=== PATIENT | female | born 1965 | race Caucasian/White ===

== ENCOUNTER → 2016-06-27 | Outpatient (CLI) | payer BC ==
[2014-12-19 09:31] VITALS: BP 105/53
[~2016-06-27] MED LIST: HORMONE CREAM; HYDR-2666 PO; HYDR50TA6 PO; MULT1TAB52 PO; NAPR550T3 PO; PHEN37.53 PO; SERT50TA PO; TRAZ50TA15 PO
--- NOTE | 2016-06-28 09:09 | KCIC ---
PROCEDURE MR of the right shoulder HISTORY Right shoulder pain for 2 months. No known injury. TECHNIQUE Standard noncontrast images are obtained. COMPARISON None FINDINGS The acromioclavicular joint is mildly degenerative with mild undersurface hypertrophy. There is diffuse thickening with some increased signal identified at the supraspinatus and infra spinatus tendon compatible with tendinosis. No measurable defect or rupture. Subscapularis tendon intact. Trace subdeltoid bursal fluid. No advanced muscle atrophy. No significant glenohumeral joint fluid. Tiny defect of the superior labrum at 12 o'clock, possibly a tiny tear, with degeneration. The biceps tendon is intact. No bone lesion or acute fracture. Soft tissue appears intact. IMPRESSION 1. Rotator cuff tendinosis without evidence of a tear. 2. Suspect small superior labral tear. Electronically signed by: Richard Warren MD (Jun 28, 2016 09:08:00)
== END | disposition home or self-care (01) ==
LOC: KCIC MRI 16:29
PROVIDERS: ATTEND Physician Assistant Medical
DX: M75.121 Complete rotator cuff tear or rupture of right shoulder, not specified as traumatic (principal)
CPT/HCPCS: 73221

== ENCOUNTER → 2017-06-06 | Outpatient (CLI) | payer BC ==
[2017-06-06] MEDS: GADOBUTROL 10 MMOL/10 ML VIAL IV ×2 (15:09)
== END | disposition home or self-care (01) ==
LOC: KCIC MRI 14:24
DX: G44.209 Tension-type headache, unspecified, not intractable (principal); R25.1 Tremor, unspecified; R56.9 Unspecified convulsions
CPT/HCPCS: 70553; A9585